=== PATIENT | female | born 1995 | race Caucasian/White ===

== ENCOUNTER → 2021-01-29 13:53 | Outpatient (CLI) | payer OTHER, SELFPAY ==
--- NOTE | ~2021-01-29 | US_ITS ---
US OB transvaginal DATE: 01/29/2021 14:18 INDICATION: Uncertain dates, irregular periods TECHNIQUE: Real-time imaging and Doppler analysis COMPARISON: None FINDINGS: Live peña intrauterine gestation. Normally shaped intrauterine gestational sac with no rmal surrounding echogenicity; no subchorionic hemorrhage is identified. Yolk sac is noted. andrew e is identified with heart rate of 172 bpm. [place]-rump length measurement is 1.81 cm, consisten t with estimated gestational age of 8 weeks 2 days +/- 5 days; ARSH: 09/08/2021. IMPRESSION: Estimated gestational age of 8 weeks 2 days +/- 5 days; ARSH: 09/08/2021 Reviewed, dictated and finalized at [facility]. Reviewed, dictated and finalized at location [facility]. IMPRESSION: Estimated gestational age of 8 weeks 2 days +/- 5 days; ARSH: 022
== END ==
PROVIDERS: Visit Provider Nurse Practitioner
DX: Z36.87 Encounter for antenatal screening for uncertain dates (principal); Z3A.08 8 weeks gestation of pregnancy
CPT/HCPCS: 76817

== ENCOUNTER → 2021-04-12 11:33 | Outpatient (CLI) | payer OTHER, SELFPAY ==
--- NOTE | ~2021-04-12 | US_ITS ---
EXAMINATION: US OB /maternal detail DATE: 04/12/2021 12:10 INDICATION: Second trimester anatomic survey TECHNIQUE: Real-time ultrasound of the pelvis was performed. COMPARISON: None. FINDINGS: There is a single living fetus in vertex presentation. The placenta is anterior and 6.6 cm from the i nternal cervical os. heart rate is 142 beats per minute (bpm). cardiac activity and feta l movement are noted. The amniotic fluid index is subjectively normal. The outflow tracts of the heart are nonvisualized due to early gestational age. The following a natomy was identified as normal: 4 chamber heart 3 vessel cord cord insertion kidneys urinary bladder stomach spine diaphragm ventricles cisterna magna cerebellum The following biometric data were obtained: Biparietal diameter (BPD): 4.4 cm; head circumference (HC): 16.0 cm; abdominal circumference (AC): 12 .8 cm; femur length (FL): 2.8 cm. These measurements are concordant. Estimated weight is 250 g +/- 37 g, which correlates with the 41st percentile when 09/08/2021 is used as estimated date of delivery. As single measurements, these parameters are each equal to the following estimated gestational ages w ith ranges of +/- 2 standard deviations: BPD: 19 weeks 2 days ( 17 weeks 4 days - 21 weeks 0 days). HC: 18 weeks 6 days ( 17 weeks 3 days - 20 weeks 2 days). AC: 18 weeks 3 days ( 16 weeks 3 days - 20 weeks 4 days). FL: 18 weeks 5 days ( 17 weeks 0 days - 20 weeks 4 days). estimated gestational age based solely on measurements from this exam is 18 weeks 6 days +/- 1 weeks 2 days. IMPRESSION: 1. Single living fetus in vertex presentation. 2. Estimated weight is 250 g +/- 37 g, which correlates with the 41st percentile when 09/08/2021 is used as estimated date of delivery. Reviewed, dictated and finalized at location [facility]. IMPRESSION: 1. Single living fetus in vertex presentation. 2. Estimated weight is 250 g +/- 37 g, which correlates with the 41st per centile when 09/08/2021 is used as estimated date of delivery.
== END ==
PROVIDERS: Visit Provider Obstetrics & Gynecology Gynecology
DX: Z36.9 Encounter for antenatal screening, unspecified (principal); Z3A.18 18 weeks gestation of pregnancy
CPT/HCPCS: 76805

== ENCOUNTER 2021-08-20 14:01 | Inpatient (IN) | payer OTHER, MEDICAID, SELFPAY ==
[2021-08-20] VITALS (111 sets, daily range): BP systolic 65–146; BP diastolic 38–106; PULSE 60–122; TEMP 36.6–37.3; O2SAT 95–100; BMI 42.3
[2021-08-20 16:44] LABS: Basophils Percent Auto 0.2 % (0.2-1.2); Eosinophils Percent Auto 0.4 % (0-4.4); Hematocrit 34.2 % (37.0-47.0); Hemoglobin 11.8 g/dL (12.0-15.0); Immature Granulocyte Absolute 0.06 K/mm3 (0.00-0.031); Immature Granulocyte Percent A 0.7 % (0-0.5); Lymphocytes Absolute Auto 1.18 K/mm3 (0.9-3.2); Lymphocytes Percent Auto 13.8 % (18.3-44.2); Mean Corpuscular HGB Conc 34.5 g/dl (32-36); Mean Corpuscular Hemoglobin 32.5 pg (26-34); Mean Corpuscular Volume 94.2 fl (80-100); Mean Platelet Volume 11.2 fl (7.4-10.4); Monocytes Absolute Auto 0.6 K/mm3 (0.1-0.6); Neutrophils Absolute Auto 6.6 K/mm3 (1.3-6.7); Neutrophils Percent Auto 77.9 % (45.5-73.1); Platelet Count Result 168 k/mm3 (150-375); Red Blood Count 3.63 M/mm3 (4.2-5.4); Red Cell Distribution Width 15.4 % (11.5-14.5); White Blood Count 8.5 K/mm3 (4.5-10.0)
[2021-08-20] MEDS: OXYTOCIN 30 UNITS/NS 500 ML 30 UNITS/500 ML BAG 6 UNITS IV CONT (16:44)
[2021-08-20] MEDS: LACTATED RINGERS 1,000 ML 125 ML IV CONT ×3 (16:45→20:36)
[2021-08-20] MEDS: AMPICILLIN 2 GM/NS 100 ML 2 GM/100 ML BAG IVPB (16:45)
[2021-08-20 16:53] LABS: Alanine Aminotransferase 49 U/L (4-35); Albumin Level 3.4 g/dL (3.5-5.1); Alkaline Phosphatase 167 U/L (38-126); Anion Gap 6 mmol/L (8-16); Aspartate Amino Transferase 31 U/L (14-36); Bilirubin,Total 0.5 mg/dL (0.2-1.3); Blood Urea Nitrogen 5 mg/dL (7-17); Calcium 8.8 mg/dL (8.4-10.2); Carbon Dioxide 21 mmol/L (22-30); Chloride 107 mmol/L (98-107); Estimated Glomerular Filt Rate > 60; Glucose 103 mg/dL (65-110); Sodium 134 mmol/L (137-145)
[2021-08-20 16:58] LABS: Uric Acid 5.5 mg/dL (2.5-7.5)
--- NOTE | 2021-08-20 16:58 | LDADM ---
This patient, Sabrina Anguiano, was admitted to Labor/Delivery/Recovery 108 on 08/20/21 at 14:01. Plans for labor, pain management and were discussed with patient. Patient/family oriented to hospital policies and general routines including ID bracelet, bed and alarms, visiting hours, pain management, procedures, bathroom and other care routines, personal items, smoking policy, room service/diet and guest tray routines, security routines, and visiting hours. Patient/Family are encouraged to report perceived risks to care and to ask questions if they do not understand what they are told or what they should do. See OBIX for further documentation.
[2021-08-20 17:02] LABS: Amphetamine Screen Urine Negative (Negative); Barbiturate Screen Urine Negative (Negative); Benzodiazepines Screen Urine Negative (Negative); Cannabinoid Screen Urine Negative (Negative); Cocaine Screen Urine Negative (Negative); Methadone Screen Urine Negative (Negative); Opiate Screen Urine Negative (Negative); Phencyclidine Screen Urine Negative (Negative)
--- NOTE | 2021-08-20 17:22 | WPDOBADMIT ---
Obstetrics - Admit Note Admission Note: record reviewed. No pertinent additions to the history and/or any subsequent changes in the physical findings that are not consistent with the expected course of the were found. Additions to the history and/or subsequent changes in the physical findings follow. Patient here with prolonged SROM since 08/19 at 1800. Now 2. Will add Pitocin and antibiotics.
--- NOTE | 2021-08-20 18:31 | WPDANESEPP ---
Anes - Eval Pre Procedure Procedure: Labor epidural Date/Time: 08/20/21 18:31 Surgeon: Santhosh Preop Diagnosis: Abd pain with contractions Pre Op Diagnosis: Labor Patient Data Age: 25 Gender: F Height: 1.57 m Weight: 105 kg Last Vital Signs Temp 99.2 F 08/20/21 16:45 Pulse 101 H 08/20/21 18:31 BP 120/79 08/20/21 18:31 Pulse Ox 100 08/20/21 18:30 Allergies Allergy/AdvReac Type Severity Reaction Status Date / Time No Known Allergies Allergy Verified 08/13/21 13:26 Home Medications Medication Instructions Recorded Confirmed Type PNV cmb#95-ferrous fumarate-FA 1 tablet PO DAILY 08/13/21 08/20/21 History [] ergocalciferol (vitamin D2) 50,000 unit PO WEEKLY 08/20/21 08/20/21 History Laboratory Tests 08/20/21 08/20/21 08/20/21 16:34 16:34 16:34 WBC 8.5 K/mm3 K/mm3 (4.5-10.0) RBC 3.63 M/mm3 L M/mm3 (4.2-5.4) Hgb 11.8 g/dL L g/dL (12.0-15.0) Hct 34.2 % L % (37.0-47.0) MCV 94.2 fl fl (80-100) MCH 32.5 pg pg (26-34) MCHC 34.5 g/dl g/dl (32-36) RDW 15.4 % H % (11.5-14.5) Plt Count 168 k/mm3 k/mm3 (150-375) MPV 11.2 fl H fl (7.4-10.4) Immature Gran % (Auto) 0.7 % H % (0-0.5) Neut % (Auto) 77.9 % H % (45.5-73.1) Lymph % (Auto) 13.8 % L % (18.3-44.2) [place] % (Auto) 7.0 % % (2.6-8.5) Eos % (Auto) 0.4 % % (0-4.4) Baso % (Auto) 0.2 % % (0.2-1.2) Lymph # (Auto) 1.18 K/mm3 K/mm3 (0.9-3.2) [place] # (Auto) 0.6 K/mm3 K/mm3 (0.1-0.6) Eos # (Auto) 0.0 K/mm3 K/mm3 (0-0.3) Baso # (Auto) 0.0 K/mm3 K/mm3 (0.0-0.1) Abs Immat Gran (auto) 0.06 K/mm3 H K/mm3 (0.00-0.031) Absolute Neuts (auto) 6.6 K/mm3 K/mm3 (1.3-6.7) Absolute Nucleated RBC 0.0 K/mm3 K/mm3 (0.0-0.012) Nucleated RBC % 0.0 % % (0.0-0.2) Sodium Potassium Chloride Carbon Dioxide Anion Gap BUN Creatinine Estim Creat Clear Calc Estimated GFR Glucose Uric Acid 5.5 mg/dL mg/dL (2.5-7.5) Calcium Total Bilirubin AST ALT Alkaline Phosphatase Total Protein Albumin Urine Opiates Screen Urine Methadone Screen Ur Barbiturates Screen Ur Phencyclidine Scrn Ur Amphetamine Screen U Benzodiazepines Scrn Urine Cocaine Screen U Cannabinoids Screen RPR Pending 08/20/21 08/20/21 16:34 16:34 WBC RBC Hgb Hct MCV MCH MCHC RDW Plt Count MPV Immature Gran % (Auto) Neut % (Auto) Lymph % (Auto) [place] % (Auto) Eos % (Auto) Baso % (Auto) Lymph # (Auto) [place] # (Auto) Eos # (Auto) Baso # (Auto) Abs Immat Gran (auto) Absolute Neuts (auto) Absolute Nucleated RBC Nucleated RBC % Sodium 134 mmol/L L mmol/L (137-145) Potassium 4.0 mmol/L mmol/L (3.4-5.0) Chloride 107 mmol/L mmol/L (98-107) Carbon Dioxide 21 mmol/L L mmol/L (22-30) Anion Gap 6 mmol/L L mmol/L (8-16) BUN 5 mg/dL L mg/dL (7-17) Creatinine 0.50 mg/dL L mg/dL (0.7-1.0) Estim Creat Clear Calc Not Reportable Estimated GFR > 60 (59 - ) Glucose 103 mg/dL mg/dL (65-110) Uric Acid Calcium 8.8 mg/dL mg/dL (8.4-10.2) Total Bilirubin 0.5 mg/dL mg/dL (0.2-1.3) AST 31 U/L U/L (14-36) ALT 49 U/L H U/L (4-35) Alkaline Phosphatase 167 U/L H U/L (38-126)
[2021-08-20] MEDS: PHENYLEPHRINE 1,000 MCG/10 ML SYRINGE 100 MCG IV PUSH (19:02)
[2021-08-20] MEDS: AMPICILLIN 1 GM/NS 50 ML 1 GM/50 ML BAG IVPB (20:36)
[2021-08-21] VITALS (84 sets, daily range): BP systolic 103–161; BP diastolic 30–98; PULSE 49–134; RESP 16–20; TEMP 36.6–37; O2SAT 80–100
[2021-08-21] MEDS: AMPICILLIN 1 GM/NS 50 ML 1 GM/50 ML BAG IVPB (00:35)
--- NOTE | 2021-08-21 03:43 | PM.OBPRVD ---
OB - Delivery Note Procedure Delivery date: 08/21/21 Procedure: Events: Other (prolonged ROM) Induction method: Per Pitocin Protocol Delivery monitor: External FHT and Internal Uterine Route of delivery: Laceration Description: Perineal - 2nd Degree and Labial (superficial Bilateral) Delivery repair: vicryl (3-0 ) Specimen: Yes (placenta) Quantitative Blood Loss (ml): 150 Anesthesia type: Epidural Disposition: Floor Baby Date of : 08/21/21 Weeks of gestation at delivery: 39 gender: Female Weight (pounds): 7 Weight (ounces): 5 presentation: vertex position: Right Occiput Anterior Placenta delivery description: Spontaneous Cord Vessel Description: 3 Vessels score one minute: 9 score five minutes: 9
--- NOTE | 2021-08-21 03:46 | PM.OBDSVD ---
DS: Admitting Diagnosis Discharge Date 08/22/21 Admitting Diagnosis prolonged ROM at 37 07/23 DS: Discharge Diagnosis Discharge Diagnosis (1) 37 weeks gestation of : Code(s): Z3A.37 - 37 weeks gestation of Status: Acute (2) (normal spontaneous vaginal delivery): Code(s): O80 - Encounter for full-term uncomplicated delivery Status: Acute OB - DS: Summary OB Procedures : Ultrasound OB Procedures Intrapartum: Spontaneous Vag Delivery OB Procedures: : None Peripartum Data Delivery Method: Natural Vaginal Laceration Description: Perineal - 2nd Degree and Labial (superficial bilateral) complications: none Status at Discharge Functional status at discharge: independent ambulation Overall status at discharge: patient is progressing back to baseline Time Spent with Patient Time attestation: Total time spent providing and/or coordinating discharge services: DS: Data Data Completed and Pending Labs on day of discharge: Labs from last 24 hours 08/20/21 08/20/21 08/20/21 16:34 16:34 16:34 WBC RBC Hgb Hct MCV MCH MCHC RDW Plt Count MPV Immature Gran % (Auto) Neut % (Auto) Lymph % (Auto) [place] % (Auto) Eos % (Auto) Baso % (Auto) Lymph # (Auto) [place] # (Auto) Eos # (Auto) Baso # (Auto) Abs Immat Gran (auto) Absolute Neuts (auto) Absolute Nucleated RBC Nucleated RBC % Sodium 134 L Potassium 4.0 Chloride 107 Carbon Dioxide 21 L Anion Gap 6 L BUN 5 L Creatinine 0.50 L Estim Creat Clear Calc Not Reportable Estimated GFR > 60 Glucose 103 Uric Acid Calcium 8.8 Total Bilirubin 0.5 AST 31 ALT 49 H Alkaline Phosphatase 167 H Total Protein 6.0 L Albumin 3.4 L Urine Opiates Screen Negative Urine Methadone Screen Negative Ur Barbiturates Screen Negative Ur Phencyclidine Scrn Negative Ur Amphetamine Screen Negative U Benzodiazepines Scrn Negative Urine Cocaine Screen Negative U Cannabinoids Screen Negative RPR Blood Type A Positive Antibody Screen Negative 08/20/21 08/20/21 08/20/21 16:34 16:34 16:34 WBC 8.5 RBC 3.63 L Hgb 11.8 L Hct 34.2 L MCV 94.2 MCH 32.5 MCHC 34.5 RDW 15.4 H Plt Count 168 MPV 11.2 H Immature Gran % (Auto) 0.7 H Neut % (Auto) 77.9 H Lymph % (Auto) 13.8 L [place] % (Auto) 7.0 Eos % (Auto) 0.4 Baso % (Auto) 0.2 Lymph # (Auto) 1.18 [place] # (Auto) 0.6 Eos # (Auto) 0.0 Baso # (Auto) 0.0 Abs Immat Gran (auto) 0.06 H Absolute Neuts (auto) 6.6 Absolute Nucleated RBC 0.0 Nucleated RBC % 0.0 Sodium Potassium Chloride Carbon Dioxide Anion Gap BUN Creatinine Estim Creat Clear Calc Estimated GFR Glucose Uric Acid 5.5 Calcium Total Bilirubin AST ALT Alkaline Phosphatase Total Protein Albumin Urine Opiates Screen Urine Methadone Screen Ur Barbiturates Screen Ur Phencyclidine Scrn Ur Amphetamine Screen U Benzodiazepines Scrn Urine Cocaine Screen U Cannabinoids Screen RPR Pending Blood Type Antibody Screen Discharge Plan Discharge Attending physician on discharge: Andria Trevizo Discharging Clinician: Andria Trevizo Anticipated Discharge Date/Time: 08/22/21 07:25 Patient Disposition: Home, Self-Care Activity: may shower and pelvic rest Diet: regular Patient Instructions: Antibiotic Form Stand Alone Forms: General Discharge Information Follow-up/Referrals: Andria Trevizo MD [Physician] - 6 Weeks Discharge Medications: New norethindrone (contraceptive) 0.35 mg tablet 0.35 mg PO DAILY Qty: 84 RF: 3 Continued PNV cmb#95-ferrous fumarate-FA [] 28 mg iron- 800 mcg Tablet 1 tablet PO DAILY RF: 0 ergocalciferol (vitam
[2021-08-21] MEDS: OXYTOCIN 30 UNITS/NS 500 ML 30 UNITS/500 ML BAG 125 UNITS IV CONT (04:13)
--- NOTE | 2021-08-21 07:03 | OBPPTRN ---
0707 Patient transferred to post room #283 via W/C. Support person present. Oriented to unit, room, information board, rooming in, admission packet and security measures. Patient verbalizes understanding.
[2021-08-21] MEDS: BENZOCAINE 20% AER SPR (*SP) 56 GM CAN 1 SPRAY TOPICAL (07:04)
[2021-08-21] MEDS: WITCH HAZEL 40 PADS 1 PAD TOPICAL (07:04)
--- NOTE | 2021-08-21 07:31 | WPDANLDNPN2 ---
Anes-Prog Note L&D-Neuraxial Date/Time: 08/21/21 07:31 Patient feedback: Patient satisfied with post-operative pain management.
--- NOTE | 2021-08-21 09:36 | PC.NURSE ---
[id number] Introductions were made and consulted with patient to assess needs related to . Mother led conversation with her experience with feeding baby so far. Mother (and her sister) state that the went well, latched with no pain, yet her sister mentioned that she would bring out the nipple shield if needed but was going to let her sister try to latch without it first . Educated patient on the use of nipple cabral and pumping would be needed after nipple shield use related to stimulating the milk production. Resources used to facilitate learning were used from the latching visual handout/mom and baby guide. Mother voiced understanding responding to feeding cues, may need to stimulating infant approximately 2-3 hours from the start of the last feeding, calling for assistance if the infant does not latch or there discomfort . Reported to primary RN.
[2021-08-21 10:35] LABS: Rapid Plasma Reagin Non-Reactive (NonReactive)
[2021-08-21] MEDS: IBUPROFEN 600 MG TABLET PO (19:53)
[2021-08-21] MEDS: ACETAMINOPHEN 325 MG TABLET 650 MG PO (19:54)
[2021-08-22 04:09] VITALS: BP 143/89; PULSE 75; RESP 18; TEMP 36.7; O2SAT 98
[2021-08-22 04:18] VITALS: BP 143/89; PULSE 75; RESP 18; TEMP 36.7; O2SAT 98
[2021-08-22 05:26] LABS: Hematocrit 32.7 % (37.0-47.0); Hemoglobin 10.6 g/dL (12.0-15.0)
--- NOTE | 2021-08-22 07:24 | P.PNOB_ITS ---
OB - PN: Subj Subjective Date/time seen: 08/22/21 07:24 Patient comments: no complaints and pain well controlled baby status: doing well OB - PN: Obj Data Labs CBC & Chem 7: 08/22/21 03:55 08/20/21 16:34 Labs: Laboratory Results - last 24 hr 08/20/21 08/22/21 16:34 03:55 Hgb 10.6 L Hct 32.7 L RPR Non-reactive OB - PN A/P Plan day: 1 Plan: routine care, discharge home, follow up 6 weeks and other (Plan s micronor) Time Spent With Patient Time: Total time spent is greater than 50% in coordination of care (as documented) at patient's floor/unit and/or counseling patient: Exam : Bimanual exam- vagina & uterus: other (Uterus firm, nt @U)
[2021-08-22 07:40] VITALS: BP 114/72; PULSE 73; RESP 16; TEMP 36.8; O2SAT 96
[2021-08-22] MEDS: IBUPROFEN 600 MG TABLET PO (08:57)
[2021-08-22] MEDS: MULTIVIT/MIN/PREN/FOL AC/IRON TABLET 1 TAB PO (08:57)
[2021-08-22] MEDS: DOCUSATE SODIUM 100 MG CAPSULE PO (08:58)
--- NOTE | 2021-08-22 09:54 | WPDANLDPN2 ---
Anes-Prog Note L&D Date/Time: 08/22/21 09:54 Comfortable throughout: labor and delivery Neuraxial method: epidural Epidural/Spinal procedure site: clean & non-tender Neuro status: Neuro function grossly intact. Cardiovascular status: normal Respiratory status: normal Airway patency: baseline Mental status: baseline Post-Op hydration status: normal Vital Signs: Last Vital Signs Temp 36.8 C 08/22/21 07:40 Pulse 73 08/22/21 07:40 Resp 16 08/22/21 07:40 BP 114/72 08/22/21 07:40 Pulse Ox 96 08/22/21 07:40 Pain score (VAS): 0 I/O: Intake & Output 08/21/21 08/22/21 08/22/21 23:59 07:59 15:59 Intake Total 360 Balance 360 Post-procedural complaints: none Patient feedback: Patient satisfied with anesthetic care.
--- NOTE | 2021-08-22 12:17 | PC.NURSE ---
Addendum entered by Cora Gallardo RN 08/22/21 12:35: Parents express that this is what the has been doing with this feeding. Wrong patient and it is a sister and patient not parents . Original Note: [id number] Patient called out for assistance with . Mother works well with her infant. Reviewed good handwashing when working with infant, breast, nipples and how to protect the nipples with a deep latch. Encouraged understanding the benefits of skin to skin, responding to feeding cues, frequencies of feeding 8-12 times in 24 hours (approximately 2-3 hours), duration of feedings, milk production, intake/output feeding sheet and signs of adequate intake. Discussed stimulating infant with skin to skin, hand expressing colostrum, touch and talking to infant to encourage eating at the breast. Reviewed positioning and alignment, supporting breast, off-centered (asymmetrical latch) and leading with the chin with big open wide gape. Mother has the latched to the left breast in cross cradle but assessment shows resting with the nipple in the mouth. Parents express that this is what the has been doing with this feeding.Worked with assisting mom with to the left breast in football position and stayed latched optimally for 7 min with a good suck/ swallow ratio, then baby detached. Assisted mother with to the right breast with football positioning. Education given to mother of how to visualize suck/swallow ratios and drinking at the breast. was able to maintain latch without discomfort to mother. Nipple care, comfort and healing with warm, wet washcloth to rinse breast and leave to air-dry. Colostrum may be left on nipples to dry but have clean hands when touching the nipple/breast. Resources used to facilitate learning were used from the visual handout/ tool/mom and baby guide. Mother voiced understanding responding to feeding cues, may need to stimulating approximately 2-3 hours from the start of the last feeding, calling for assistance if the infant does not latch or there discomfort . Reported to primary RN.
--- NOTE | 2021-08-22 12:57 | PC.NURSE ---
0900 Patient viewed the discharge video Mother & Baby Care, The First Two Weeks . Patient was given the opportunity and encouraged to ask questions. Patient verbalized understanding of information shared and has been given the mother/baby guide for home reference.
[2021-08-23 10:26] VITALS: BP 128/75; PULSE 76; RESP 20; TEMP 37; O2SAT 100
== END 2021-08-22 12:00 | disposition home or self-care (01) | DRG 807 ==
LOC: ANHLDR 08-21 03:48 → ANHOB2 08-21 07:31
PROVIDERS: Admitting Provider Obstetrics & Gynecology Gynecology; Visit Provider Obstetrics & Gynecology Gynecology
DX: O42.92 Full-term premature rupture of membranes, unspecified as to length of time between rupture and onset of labor (principal); Z37.0 Single live birth; Z3A.37 37 weeks gestation of pregnancy; O70.1 Second degree perineal laceration during delivery; O36.8330 Maternal care for abnormalities of the fetal heart rate or rhythm, third trimester, not applicable or unspecified
CPT/HCPCS: 36415; 80053; 80307; 84112; 84550; 85014; 85018; 85025; 86592; 86850; 86900; 86901; 88307; A9270; J0290; J2370; J2590; J2795; J7120

== ENCOUNTER 2022-12-07 10:02 | Emergency (ER) | payer OTHER, SELFPAY ==
[2022-12-07 10:04] VITALS: BP 128/86; PULSE 146; RESP 18; TEMP 36.3; O2SAT 100
--- NOTE | 2022-12-07 10:40 | ECG_ITS ---
Measurements Intervals [place] Rate: 98 P: 70 IN: 178 QRS: 62 QRSD: 102 T: 4 QT: 347 QTc: 445 Interpretive Statements SINUS RHYTHM INCOMPLETE RIGHT BUNDLE BRANCH BLOCK BORDERLINE ECG NO PREVIOUS ECG AVAILABLE FOR COMPARISON Electronically Signed On 12-08-2022 8:20:00 CDT by Hunter Gomes M.D.
[2022-12-07] MEDS: ONDANSETRON HCL ODT 4 MG TABLET PO (10:55)
[2022-12-07] MEDS: LACTATED RINGERS 2,000 ML 999 ML IV CONT (10:56)
--- NOTE | 2022-12-07 11:03 | ED.NAVMDI ---
HPI - Nausea/Vomiting/Diarrhea General Chief complaint: Nausea/Vomiting/Diarrhea Stated complaint: N/V/D X2D Time Seen by Provider: 12/07/22 10:21 History of Present Illness HPI Narrative: This is a 27-year-old female who denies sniffing past medical history, presenting to the emergency department complaining of nausea, vomiting and diarrhea for the past 2 days. She states 3 days ago, she ate [employer] [place], and shortly thereafter developed persistent nonbloody vomiting and diarrhea. This was associated with 1 episode of subjective fevers that have not since recurred. She denies chest pain, cough, shortness of breath, abdominal pain or bleeding from any other source. Related Data Home Medications Medication Instructions Recorded Confirmed vit no.95-ferrous 1 tablet PO DAILY 08/13/21 08/20/21 fumarate 28 mg-folic acid 800 mcg tablet () ergocalciferol (vitamin D2) 1,250 50,000 unit PO WEEKLY 08/20/21 08/20/21 mcg (50,000 unit) capsule Allergies Allergy/AdvReac Type Severity Reaction Status Date / Time No Known Allergies Allergy Verified 08/13/21 13:26 Review of Systems Review of Systems: CONSTITUTIONAL: Subjective fevers, sweats denies chills ENT: Denies rhinorrhea, congestion, sore throat, or otalgia. CARDIOVASCULAR: Palpitations denies chest pain, or edema. RESPIRATORY: Denies cough or dyspnea. GASTROINTESTINAL: Persistent nausea, nonbloody vomiting and nonbloody diarrhea denies abdominal pain, GENITOURINARY: Denies dysuria or hematuria. Last menstrual period 1 month ago SKIN: Denies rash or itching. MUSCULOSKELETAL: Denies back pain, joint pain, or myalgia. NEUROLOGIC: Denies headache, numbness, dizziness, or weakness. PSYCHIATRIC: Denies anxiety or depression. [facility] Past Medical History Medical History Anxiety and depression Kidney stones Morbid obesity due to excess calories and not yet delivered Family History Family History Father Diabetes mellitus Mother Diabetes mellitus Social History Social History (Updated 12/07/22 @ 11:06 by Robi Camacho MD) Smoking status: Former smoker Smoking end date: 06/16/19 Alcohol intake: current Drinks per week: 1 Substance use: never Spiritual care concerns: No Exam Narrative: GENERAL: Well-developed, well-nourished, appears tired HEAD: Normocephalic, atraumatic. EYES: PERRLA and EOMI. ENT: Nares clear, no rhinorrhea or epistaxis. Mucous membranes moist. Oropharynx without tonsillar hypertrophy exudate or other lesions. CHEST: Clear to auscultation. No respiratory distress. No wheezes rales or rhonchi HEART: Tachycardic and regular rhythm. No murmur heard. Normal peripheral pulses. ABDOMEN: Soft, nontender, nondistended, normal active bowel sounds. EXTREMITIES: Normal range of motion. No edema. SKIN: Warm, dry, no rash. NEURO: No focal deficits. Alert and oriented x3. PSYCH: Normal mood and affect. Course Course Emergency Course: 13:00 - WBC elevated to 11.4. Hbg elevated to 16.9. Chemistries not concerning for BARB. Magnesium slightly elevated at 2.4. UA consistent with dehydration, though is contaminated and not concerning for UTI. test negative. The patient states she feels much improved. Will PO challenge. If she is able to tolerate, will discharge. 14:00 - On reevaluation, the patient feels much improved and is able to tolerate p.o. fluids without recurrent vomiting. Will discharge with antiemetics and recommendation for primary care follow-up. Discussed return and emergency precautions including signs/symptoms of acute abdomen and respiratory distress. The patient voiced understanding and is comfortable with plan. All questions answered to her satisfaction Vital Signs Vital signs: Vital Signs Temperature 97.4 F L 12/07/22 10:04 Pulse Rate 146 H 12/07/22 10:04
[2022-12-07 11:07] VITALS: BP 104/71; PULSE 94; RESP 18; O2SAT 100
[2022-12-07 11:07] LABS: Basophils Percent Auto 0.3 % (0.2-1.2); Hematocrit 48.5 % (37.0-47.0); Hemoglobin 16.9 g/dL (12.0-15.0); Immature Granulocyte Absolute 0.04 K/mm3 (0.00-0.031); Immature Granulocyte Percent A 0.4 % (0-0.5); Immature Platelet Fraction Pct 9.2 % (0.9-11.2); Lymphocytes Absolute Auto 0.34 K/mm3 (0.9-3.2); Mean Corpuscular HGB Conc 34.8 g/dl (32-36); Mean Corpuscular Hemoglobin 31.7 pg (26-34); Mean Platelet Volume 11.9 fl (7.4-10.4); Monocytes Percent Auto 8.4 % (2.6-8.5); Neutrophils Absolute Auto 10.1 K/mm3 (1.3-6.7); Neutrophils Percent Auto 87.9 % (45.5-73.1); Platelet Count Result 244 k/mm3 (150-375); Red Blood Count 5.33 M/mm3 (4.2-5.4); White Blood Count 11.4 K/mm3 (4.5-10.0)
[2022-12-07 11:14] LABS: Alanine Aminotransferase 39 U/L (6-35); Albumin Level 5.5 g/dL (3.5-5.1); Alkaline Phosphatase 82 U/L (38-126); Anion Gap 15 mmol/L (8-16); Aspartate Amino Transferase 36 U/L (14-36); Bilirubin,Total 1.3 mg/dL (0.2-1.3); Blood Urea Nitrogen 19 mg/dL (7-17); Calcium 9.6 mg/dL (8.4-10.2); Carbon Dioxide 22 mmol/L (22-30); Chloride 99 mmol/L (98-107); Estimated CRCL calculation 82 ml/min; Estimated Glomerular Filt Rate > 60; Glucose 121 mg/dL (65-110); Lipase 48 U/L (23-300); Potassium 3.8 mmol/L (3.4-5.0); Sodium 136 mmol/L (137-145)
[2022-12-07 11:16] LABS: Magnesium 2.4 mg/dL (1.6-2.3)
[2022-12-07 11:38] VITALS: BP 126/86; PULSE 94; RESP 12; O2SAT 100
[2022-12-07 12:01] LABS: Appearance Urine Turbid (Clear); Bacteria Urine 4+ /hpf; Bilirubin Urine 2+ (Negative); Color Urine Dark Yellow (Yellow); Glucose Urine UA Negative (Negative); Hyaline Casts Urine Present /lpf; Ketones Urine 1+ mg/dL (Negative); Leukocyte Esterase Ur 1+ LEU/UL (Negative); Nitrate Urine Negative (Negative); Non Pathogenic Casts >20; Protein Urine 3+ mg/dL (Negative); Specific Grav Ur 1.035 (1.001-1.035); Squamous Epithelial Cell Urine Moderate /hpf (Few); WBC Urine 21-50 /hpf
[2022-12-07 12:02] LABS: Add Urine Microscopic? YES
[2022-12-07 12:22] VITALS: BP 125/82; PULSE 92; RESP 15; O2SAT 100
[2022-12-07 13:58] VITALS: BP 127/78; PULSE 92; RESP 18; O2SAT 100
== END 2022-12-07 15:28 | disposition home or self-care (01) ==
PROVIDERS: Emergency Provider Preventive Medicine Aerospace Medicine
DX: K52.9 Noninfective gastroenteritis and colitis, unspecified (principal); R00.0 Tachycardia, unspecified; E66.01 Morbid (severe) obesity due to excess calories; Z68.39 Body mass index [BMI] 39.0-39.9, adult; Z87.442 Personal history of urinary calculi; Z87.891 Personal history of nicotine dependence; I45.10 Unspecified right bundle-branch block
CPT/HCPCS: 36415; 80053; 81001; 81025; 83690; 83735; 85025; 85055; 87086; 87088; 93005; 96360; 96361; 99283; A9270; J7120

== ENCOUNTER 2023-01-24 09:53 | Emergency (ER) | payer OTHER, SELFPAY ==
[2023-01-24 10:05] VITALS: BP 134/93; PULSE 101; RESP 18; TEMP 36.6; O2SAT 99
[2023-01-24 10:17] LABS: Appearance Urine Clear (Clear); Bacteria Urine Rare /hpf; Bilirubin Urine Negative (Negative); Blood Urine Negative (Negative); Color Urine Yellow (Yellow); Glucose Urine UA Negative (Negative); Ketones Urine Negative (Negative); Leukocyte Esterase Ur 2+ LEU/UL (Negative); Nitrate Urine Negative (Negative); Non Pathogenic Casts 0-2; Protein Urine Negative (Negative); RBC Urine 0-2 /hpf (0-2); Specific Grav Ur 1.009 (1.001-1.035); Squamous Epithelial Cell Urine Few /hpf (Few); pH Urine 6.5 (5.0-9.0)
[2023-01-24 10:24] LABS: Add Urine Microscopic? YES
--- NOTE | 2023-01-24 11:15 | ED.FEMALEGU ---
HPI - Female Genitourinary General Chief complaint: Urogenital-Female Stated complaint: UTI? Time Seen by Provider: 01/24/23 10:05 History of Present Illness HPI Narrative: 27-year-old female, LMP 1 week ago, with a history of ureteric lithiasis reports for evaluation for dysuria and dark urine x 2 days. Patient states she is unsure if there was blood in her urine but reports it has been darker than usual. She denies vaginal discharge, concern for STDs. She does reports intermittent mild suprapubic abdominal pain. Denies back pain, fever, vomiting. Reports she does not believe this is a kidney stone based on her prior experience. States she has been drinking a lot of water daily. Related Data Home Medications Medication Instructions Recorded Confirmed vit no.95-ferrous 1 tablet PO DAILY 08/13/21 08/20/21 fumarate 28 mg-folic acid 800 mcg tablet () ergocalciferol (vitamin D2) 1,250 50,000 unit PO WEEKLY 08/20/21 08/20/21 mcg (50,000 unit) capsule Allergies Allergy/AdvReac Type Severity Reaction Status Date / Time No Known Allergies Allergy Verified 01/24/23 10:27 Review of Systems Review of Systems: CONSTITUTIONAL: Denies fever, chills EYES: Denies visual changes, redness, or discharge. ENT: Denies rhinorrhea, congestion, sore throat, or otalgia. CARDIOVASCULAR: Denies chest pain, palpitations, or edema. RESPIRATORY: Denies cough or dyspnea. GASTROINTESTINAL: See HPI GENITOURINARY: See HPI SKIN: Denies rash or itching. MUSCULOSKELETAL: Denies back pain, joint pain, or myalgia. NEUROLOGIC: Denies headache, numbness, dizziness, or weakness. PSYCHIATRIC: Denies anxiety or depression. [facility] Past Medical History Medical History Anxiety and depression Kidney stones Morbid obesity due to excess calories and not yet delivered Family History Family History Father Diabetes mellitus Mother Diabetes mellitus Social History Social History Smoking status: Former smoker Smoking end date: 06/16/19 Alcohol intake: current Drinks per week: 1 Substance use: never Spiritual care concerns: No Exam Narrative: GENERAL: Well-appearing, in no acute distress. Patient resting comfortably in exam bed. She is pleasant and conversational HEAD: Normocephalic NECK: Supple. CHEST: No respiratory distress. Clear to auscultation, no adventitious breath sounds. HEART: Regular rate and rhythm. No murmur heard. Normal peripheral pulses. ABDOMEN: Soft, nontender, normal active bowel sounds. No CVA tenderness. EXTREMITIES: Normal range of motion. No edema. SKIN: Warm, dry, no rash. NEURO: No focal deficits. Alert and oriented x3. PSYCH: Normal mood and affect. Course Vital Signs Vital signs: Vital Signs Temperature 97.9 F 01/24/23 10:05 Pulse Rate 101 H 01/24/23 10:05 Respiratory Rate 18 01/24/23 10:05 Blood Pressure 134/93 H 01/24/23 10:05 Pulse Oximetry 99 01/24/23 10:05 Oxygen Delivery Room Air 01/24/23 10:05 Temperature 97.9 F 01/24/23 10:05 Pulse Rate 101 H 01/24/23 10:05 Respiratory Rate 18 01/24/23 10:05 Blood Pressure 134/93 H 01/24/23 10:05 Pulse Oximetry 99 01/24/23 10:05 Oxygen Delivery Room Air 01/24/23 10:05 MDM - Female Genitourinary MDM Narrative Medical decision making narrative: 27-year-old female, LMP 1 week ago, with a history of ureteric lithiasis reports for evaluation for dysuria and dark urine x 2 days. Vital stable other than mildly elevated blood pressure. Patient is well-appearing on exam, abdomen is soft and nontender, no CVA tenderness. No concern for STDs. Urinalysis concerning for possible UTI, urine culture pending. Given her history of ureteric lithiasis, I did offer labs and a CT scan for potential ureterolithia
[2023-01-24] MEDS: CEPHALEXIN 500 MG CAPSULE PO (11:26)
[2023-01-24 11:29] VITALS: BP 105/69; PULSE 87; RESP 16; O2SAT 100
== END 2023-01-24 11:31 | disposition home or self-care (01) ==
PROVIDERS: Preventive Medicine Aerospace Medicine; Emergency Provider Physician Assistant
DX: N30.00 Acute cystitis without hematuria (principal); Z87.891 Personal history of nicotine dependence
CPT/HCPCS: 81001; 81025; 87086; 99283; A9270